=== PATIENT | female | born 1990 | race American Indian/Alaskan Native ===

== ENCOUNTER 2018-02-14 18:58 | Outpatient (CLI) | payer MEDICAID ==
[2018-02-14] MEDS ORDERED: LACTATED RINGERS 1,000 ML ONE (22:53)
[2018-02-14] MEDS ORDERED: LACTATED RINGERS 500 ML IV ONE (23:43)
[2018-02-15 02:49] VITALS: BP 161/82
== END 2018-02-15 00:12 | disposition home or self-care (01) ==
LOC: TRG 18:58
PROVIDERS: ATTEND Obstetrics & Gynecology
DX: O47.03 False labor before 37 completed weeks of gestation, third trimester (principal); O24.419 Gestational diabetes mellitus in pregnancy, unspecified control; Z3A.36 36 weeks gestation of pregnancy
CPT/HCPCS: 82962; J7120; 59025; 96360

== ENCOUNTER → 2020-12-06 | Outpatient (CLI) | payer MEDICAID | END | disposition home or self-care (01) | LOC: SLR 11:00 | PROVIDERS: ATTEND Surgery | DX: G47.30 Sleep apnea, unspecified (principal) | CPT/HCPCS: G0399 ==

== ENCOUNTER 2020-12-25 09:19 | Outpatient (CLI) | payer OTHER ==
--- NOTE | 2020-12-25 10:27 | XRay Report ---
LEFT ANKLE 3 VIEWS INDICATION / CLINICAL INFORMATION: Left ankle pain. COMPARISON: None available. FINDINGS: BONES and JOINT(S): No acute fracture or subluxation. No significant arthritis. SOFT TISSUES: There is mild generalized edema. No other significant abnormality. ADDITIONAL FINDINGS: None. IMPRESSION: Mild left ankle edema. No other acute findings. Signer Name: Andrew Torres MD Signed: 12/25/2020 10:22 AM Workstation Name: [id number]
--- NOTE | 2020-12-25 10:27 | XRay Report ---
RIGHT KNEE 3 VIEWS INDICATION / CLINICAL INFORMATION: Pain in right knee. COMPARISON: None available. FINDINGS: BONES and JOINT(S): No acute fracture or subluxation. There is mild/moderate tricompartmental osteoar thritis. SOFT TISSUES: No significant abnormality. ADDITIONAL FINDINGS: None. IMPRESSION: 1. No acute findings. 2. Mild/moderate osteoarthritis. Signer Name: Andrew Torres MD Signed: 12/25/2020 10:23 AM Workstation Name: [id number]
== END 2020-12-25 09:20 | disposition home or self-care (01) ==
LOC: XRAY 09:19
PROVIDERS: ATTEND Internal Medicine
DX: M17.11 Unilateral primary osteoarthritis, right knee (principal); M79.89 Other specified soft tissue disorders

== ENCOUNTER 2021-01-30 07:40 | Day surgery (SDC) | payer MEDICAID ==
--- NOTE | 2021-01-30 08:35 | Discharge Summary ---
Providers - Providers Date of Admission: 01/30/2021 Date of discharge: 01/30/21 Attending physician: LINO KILLIAN MD Primary care physician: DARCIE NELSON Hospitalization Reason for admission: pre-op egd Condition: Good Procedures: egd w/ bx Hospital course: Pt presented for a pre-op EGD as part of planning for up coming bariatric surgery. Procedure was uneventful and pt recovered well and was discharged to home. Disposition: 01 HOME / SELF CARE / HOMELESS Final Discharge Diagnosis (Prints w/discharge instructions): dyspepsia, morbid obesity Core Measure Documentation - Palliative Care Palliative Care/ Comfort Measures: Not Applicable - Core Measures Any of the following diagnoses?: none Exam - Physical Exam Narrative exam: unchanged from pre-op Plan Activity: no restrictions Diet: low carbohydrate Follow up with: DARCIE NELSON MD [Primary Care Provider] - 7 Days
--- NOTE | 2021-01-30 08:36 | Operative Report ---
Operative Report Operative Report: DATE: 01/30/2021 SURGERY: Upper endoscopy. SURGEON: Elizabeth White M.D. PROCEDURE: EGD with biopsy PRE OP DX: morbid obesity, GERD POST OP DX: morbid obesity, GERD TYPE OF ANESTHESIA: MAC. ESTIMATED BLOOD LOSS: None. COMPLICATIONS: None. SPECIMENS REMOVED: antral biopsy FINDINGS: 1. Small hiatal hernia. 2. gastritis INDICATIONS:INDICATION FOR PROCEDURE: Patient is a 31-year-old female with a long history of morbid obesity. She is planned to have a weight loss procedure and is here for preoperative planning EGD. PROCEDURE DETAILS: After consent was reviewed, patient was taken back to the operating room where patient was placed in the left lateral decubitus position and a bite block was placed in the mouth. After a time-out was called, MAC anesthesia was initiated. I then passed the endoscope into her oropharynx, into her esophagus, visualized the entire esophagus, which was all within normal limits. Z-line was noted to about 38cm from incisors. I then visualized the stomach and the first portion of the duodenum and there were no abnormalities I could clearly visualize except for antral gastritis. A cold forceps biopsy of the antrum was taken and will be sent to pathology to evaluate for H.pylori. I then retroflexed the scope in the stomach and visualized the hiatus and I could see a small hiatal hernia. I then desufflated the stomach and removed the endoscope. Patient tolerated procedure well and was transferred to recovery room in good and stable condition.
[2021-01-30] MEDS ORDERED: SODIUM CHLORIDE 0.9% 1000 ML 1,000 ML ONE (09:07)
[2021-01-30] MEDS ORDERED: propofoL 200 MG/20 ML VIAL IV ONE (10:23)
--- NOTE | 2021-01-30 10:32 | Anesthesia Consultation ---
Anesthesia Consult and Med Hx - Airway Anesthetic Teeth Evaluation: Good ROM Head & Neck: Adequate Mental/Hyoid Distance: Adequate Mallampati Class: Class II Intubation Access Assessment: Probably Good - Pulmonary Exam CTA: Yes - Cardiac Exam Cardiac Exam: RRR - Pre-Operative Health Status ASA Pre-Surgery Classification: ASA2 Proposed Anesthetic Plan: MAC - Pulmonary Hx Smoking: No Hx Asthma: Yes (INHALER LAST USED summer 2017) Hx Respiratory Symptoms: No SOB: No COPD: No Hx Pneumonia: No Hx Sleep Apnea: No - Cardiovascular System Hx Hypertension: No Hx Coronary Artery Disease: No Hx Heart Attack/AMI: No Hx Angina: No Hx Percutaneous Transluminal Coronary Angioplasty (PTCA): No Hx Cardia Arrhythmia: No Hx Pacemaker: No Hx Internal Defibrillator: No Hx Valvular Heart Disease: No Hx Heart Murmur: No Hx Peripheral Vascular Disease: No - Central Nervous System Hx Neuromuscular Disorder: No Hx Seizures: No CVA: No Hx Back Pain: No Hx Psychiatric Problems: No - Gastrointestinal Hx Ulcer: No Hx Gastroesophageal Reflux Disease: No - Endocrine Hx Renal Disease: No Hx End Stage Renal Disease: No Hx Cirrhosis: No Hx Liver Disease: No Hx Insulin Dependent Diabetes: Yes Hx Non-Insulin Dependent Diabetes: No Hx Thyroid Disease: No Hx Hypothyroidism: No Hx Hyperthyroidism: No - Hematic Hx Anemia: No Hx Sickle Cell Disease: Yes (sickle cell trait) - Other Systems Hx Alcohol Use: No Hx Substance Use: No Hx Cancer: No Hx Obesity: Yes - Additional Comments Anesthesia Medical History Comments: No hx of anesthesia complications
--- NOTE | 2021-01-30 10:32 | Anesthesia Day of Surgery ---
Anesthesia Day of Surgery - Day of Surgery Patient Examined: Yes Patient H&P Reviewed: Yes Patient is NPO: Yes
[2021-01-30] MEDS ORDERED: LIDOCAINE MPF (2%) 20 MG/1 ML VIAL 5 ML ONE (10:35)
[2021-01-30 17:09] VITALS: BP 161/53
--- NOTE | 2021-01-30 18:24 | Post Anesthesia Evaluation ---
- Post Anesthesia Evaluation Patient Participated: Yes Airway Patent: Yes Stable Respiratory Function: Yes Nausea/Vomiting: No Temp > 96.8F: Yes Pain Manageable: Yes Adequeate Hydration: Yes Anesthesia Complications: No Block Receding Appropriately: Not Applicable Patient on Ventilator: No
== END 2021-01-30 11:30 | disposition home or self-care (01) ==
LOC: GIO 07:40
PROVIDERS: ATTEND Surgery
DX: E66.01 Morbid (severe) obesity due to excess calories (principal); K21.9 Gastro-esophageal reflux disease without esophagitis; K44.9 Diaphragmatic hernia without obstruction or gangrene; K29.50 Unspecified chronic gastritis without bleeding; B96.81 Helicobacter pylori [H. pylori] as the cause of diseases classified elsewhere; K31.89 Other diseases of stomach and duodenum; J45.909 Unspecified asthma, uncomplicated; E11.9 Type 2 diabetes mellitus without complications; Z79.82 Long term (current) use of aspirin; Z79.4 Long term (current) use of insulin; Z79.899 Other long term (current) drug therapy; Z98.890 Other specified postprocedural states; Z82.49 Family history of ischemic heart disease and other diseases of the circulatory system; Z83.3 Family history of diabetes mellitus
CPT/HCPCS: 43239; 82962; 88305; 88342; J2704; J3490; J7030; J7120; Q0162

== ENCOUNTER 2021-04-30 06:02 | Inpatient (IN) | payer MEDICAID ==
[2021-04-26 12:33] LABS: Hematocrit 39.4 % (30.3-42.9); Hemoglobin 12.8 gm/dl (10.1-14.3); Mean Corpuscular HGB Conc 32 % (30-34); Mean Corpuscular Volume 79 fl (79-97); Platelet Count 415 K/mm3 (140-440); Red Cell Distribution Width 17.5 % (13.2-15.2)
--- NOTE | 2021-04-26 13:05 | Anesthesia Consultation ---
Anesthesia Consult and Med Hx Date of service: 04/30/21 - Airway Anesthetic Teeth Evaluation: Good ROM Head & Neck: Adequate Mental/Hyoid Distance: Adequate Mallampati Class: Class II Intubation Access Assessment: Probably Good - Pre-Operative Health Status ASA Pre-Surgery Classification: ASA3 Proposed Anesthetic Plan: General - Pulmonary Hx Smoking: No Hx Asthma: Yes (Haven't used inhaler in yeras) Hx Respiratory Symptoms: No SOB: No COPD: No Hx Pneumonia: No Hx Sleep Apnea: Yes (No CPAP yet) - Cardiovascular System Hx Hypertension: No Hx Coronary Artery Disease: No Hx Heart Attack/AMI: No Hx Angina: No Hx Percutaneous Transluminal Coronary Angioplasty (PTCA): No Hx Cardia Arrhythmia: No Hx Pacemaker: No Hx Internal Defibrillator: No Hx Valvular Heart Disease: No Hx Heart Murmur: No Hx Peripheral Vascular Disease: No - Central Nervous System Hx Neuromuscular Disorder: No Hx Seizures: No CVA: No Hx Back Pain: No Hx Psychiatric Problems: No - Gastrointestinal Hx Ulcer: No Hx Gastroesophageal Reflux Disease: No - Endocrine Hx Renal Disease: No Hx End Stage Renal Disease: No Hx Cirrhosis: No Hx Liver Disease: No 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
[2021-04-26 13:15] LABS: Alanine Aminotransferase 14 units/L (7-56); Albumin 3.8 g/dL (3.9-5); Blood Urea Nitrogen 11 mg/dL (7-17); Hemolysis Index 2
[2021-04-26 13:16] LABS: BUN/Creatinine Ratio 28
[~2021-04-30 06:02] MED LIST: ENOXAPARIN 40 MG/0.4 ML INJ SUB-Q NR; GABAPENTIN 500 MG/10 ML ORAL LIQD PO NR; LACTATED RINGERS 1,000 ML IV SCH; MIDAZOLAM 2 MG/2 ML INJ IV NR; SCOPOLAMINE TRANSDERMAL PATCH 72 HR TD NR; methOCARBAMOL 1,000 MG in SODIUM CHLORIDE 0.9% 250ML 250 ML IV ONE; metroNIDAZOLE/NS 500 MG/100 ML 500 MG/100 ML BAG IV NR
[2021-04-30] MEDS ORDERED: LIDOCAINE MPF (2%) 20 MG/1 ML VIAL 5 ML ONE ×5 (07:17→07:34)
[2021-04-30] MEDS ORDERED: MAGNESIUM SULFATE 2 GM/50 ML BAG IV ONE (07:17)
[2021-04-30] MEDS ORDERED: KETAMINE/STERILE WATER 50 MG/ML SYRINGE ONE (07:17)
[2021-04-30] MEDS ORDERED: ROCURONIUM 50 MG/5 ML INJ IV ONE (07:17)
[2021-04-30] MEDS ORDERED: SODIUM CHLORIDE P/F VIAL 10 ML 10 ML ONE (07:18)
[2021-04-30] MEDS ORDERED: SUGAMMADEX SODIUM 200 MG/2 ML VIAL IV ONE (07:18)
[2021-04-30] MEDS: ACETAMINOPHEN IV 1,000 MG/100 ML BOTTLE IV NR ×3 (07:30→16:06)
[2021-04-30] MEDS ORDERED: ONDANSETRON 4 MG/2 ML INJ IV PRN ×2 (07:33→10:54)
[2021-04-30] MEDS ORDERED: HYDROmorphone 1 MG/1 ML INJ IV PRN ×3 (07:33→10:54)
--- NOTE | 2021-04-30 07:33 | Anesthesia Day of Surgery ---
Anesthesia Day of Surgery - Day of Surgery Patient Examined: Yes Patient H&P Reviewed: Yes Patient is NPO: Yes
[2021-04-30] MEDS ORDERED: LIDOCAINE 2%/EPINEPHRINE 1:200,000 VIAL (20 ML) INFILTRATI ONE (07:38)
[2021-04-30] MEDS ORDERED: BUPIVACAINE/PF (0.25%) 2.5 MG/ML 30 ML VIAL INFILTRATI ONE ×2 (07:39→09:58)
[2021-04-30] MEDS ORDERED: MIDAZOLAM 2 MG/2 ML INJ ONE (07:58)
[2021-04-30] MEDS ORDERED: HYDROGEN PEROXIDE 118 ML SOLUTION ONE (09:02)
[2021-04-30] MEDS ORDERED: SODIUM CHLORIDE 0.9% IRRIG SOLN 2000 ML IR ONE (09:58)
[2021-04-30] MEDS ORDERED: LIDOCAINE 2%/EPINEPHRINE 1:100,000 VIAL (20 ML) INFILTRATI ONE (09:59)
[2021-04-30] MEDS ORDERED: LACTATED RINGERS 1,000 ML ONE (10:24)
--- OUTSIDE RECORDS SUMMARY | 2021-04-30 10:29 | External Medical Summary ---
:1990 Author Organization [facility] Address [address] [place] [id number] Care Team Providers Name Role Phone Elizabeth White Unavailable [phone] PROBLEMS Type Condition ICD9-CM [id number] Onset Condition W/U Status Risk SNOM ED Notes Code Code Dates Status Code Problem Sleep G47.9 Active confirmed 87185667 disorder, unspecified Problem Sleep apnea, G47.30 Active confirmed 1090449 6 unspecified Problem Dietary Z71.3 Active confirmed 143290215 counseling and surveillance Problem Morbid E66.01 Active confirmed 418952796 (severe) obesity due to excess calories Problem Type 2 E11.9 Active confirmed 656907070 diabetes mellitus without complications Problem Functional K30 Active confirmed 2533060 dyspepsia ALLERGIES No Known Allergies ENCOUNTERS from 1989 to 2021-04-30 Encounter Location Date Provider Diagnosis [address] Apr, [facility] [place] [place] [id number] IMMUNIZATIONS No Information SOCIAL HISTORY Sex Assigned At : Social History Observation Description Sex Assigned At Unknown REASON FOR REFERRAL from 1990 to 2021-04-30 Reason GASTRIC [facility]PASS Diagnosis 1 Type 2 diabetes mellitus wit hout complications (E11.9) Diagnosis 2 Morbid (severe) obesity due to excess calories (E66.01) Diagnosis 3 Functional dyspepsia (K30) Diagnosis 4 Sleep disorder, unspecified (G47.9) Diagnosis 5 Joint disorder, unspecified (M25.9) Diagnosis 6 Sleep apnea, unspecified (G4 7.30) Referral Organization [facility] Referring Provider First Name Elizabeth Referring Provider Last Name Christopher Referring Provider Specialty Surgery Referred Provider [facility], - Referral Priority Routine VITAL SIGNS No information MEDICATIONS Medication SIG (Take, Route, Notes Start Date End Date Status Frequency, Duration) Ondansetron 4 MG 1-2 tablet on the Apr, Active tongue and allow to dissolve Orally q 4-6 hours prn nausea Actos Active Lantus 100 UNIT/ML as directed 60 units QHS Act mendoza Subcutaneous Gabapentin Active Omeprazole 20 MG 1 capsule 30 minutes Jan, Active before morning meal Orally twice a day (bid) for 14 day(s) NovoLOG Mix 70/30 as directed 18 units TID Acti ve (70-30) 100 UNIT/ML Subcutaneous Omeprazole 40 MG 1 capsule 30 minutes Apr, Active before morning meal Orally Once a day Diclofenac Active PROCEDURES No Information RESULTS No Results REASON FOR VISIT Gastric Bypass MEDICAL (GENERAL) HISTORY Type Description Date Medical History diabetes Medical History asthma Medical History joint pain Medical History peripheral neuropathy Surgical History bartholin cyst removal 2016 Surgical History 2019 Hospitalization History as above Goals Section No Information Health Concerns No Information MEDICAL EQUIPMENT No Information MENTAL STATUS No Information FUNCTIONAL STATUS No Information ASSESSMENTS No Information PLAN OF TREATMENT Medication Medication Name Sig Start Date Stop Date Omeprazole 40 MG 1 capsule 30 minutes before morning meal Apr Orally Once a day Ondansetron 4 MG 1-2 tablet on the tongue and allow to Apr, 022 dissolve Orally q 4-6 hours prn nausea Referrals Referral Date Details GASTR[facility]PASS Insurance Providers Payer Payer Payer Insured Patient Coverage Coverage Subscriber Mikaela up Name Address Phone Name Relationship Start End Date Number Nu mber to Insured Date [employer] [phone] [facility] self [id number] [facility] [phone] Sarah garces [facility] [address]
[2021-04-30] MEDS ORDERED: METOCLOPRAMIDE 10 MG/2 ML INJ IV PRN (10:54)
[2021-04-30] MEDS ORDERED: hydrALAZINE 20 MG/1 ML INJ IV PRN (10:54)
[2021-04-30] MEDS ORDERED: HYDROcodone/Acetaminophen 7.5-325MG-15ML ORAL LIQD PO PRN (10:54)
[2021-04-30] MEDS ORDERED: MORPHINE 2 MG/1 ML INJ IV PRN (10:54)
[2021-04-30] MEDS ORDERED: DEXTROSE 50% IN WATER (25GM) 50 ML SYRINGE IV PRN (11:00)
[2021-04-30] MEDS ORDERED: LACTATED RINGERS 1,000 ML IV SCH (11:00)
--- NOTE | 2021-04-30 11:06 | Operative Report ---
Operative Report Operative Report: DATE OF PROCEDURE: 04/30/2021 SURGEON: Elizabeth White MD INDUSTRIAL CHEMIST: Graciela George CSA MD PREOPERATIVE DIAGNOSIS: Morbid obesity. POSTOPERATIVE DIAGNOSES: Morbid obesity PROCEDURES PERFORMED: 1. Laparoscopic gastric bypass. 2. EGD. ANESTHESIA: General endotracheal tube intubation. SPECIMENS: None. ESTIMATED BLOOD LOSS: Less than 10 mL. FINDINGS: Normal anatomy. COMPLICATIONS: None. INDICATION: Ms. Butt is a 31-year-old female with history of morbid obesity, and obesity related co-morbidities. She presented today for gastric bypass. She signed informed consent and expressed understanding of risks and benefits. DESCRIPTION OF PROCEDURE: Patient was brought to the OR suite, laid in supine position. Bilateral lower extremity SCDs were placed. General anesthesia was induced via successful endotracheal tube intubation. Patient's abdomen was prepped and draped in sterile fashion. A veress needle was used to insuflate the abdomen to a pressure of 15mmHg via a stab incision in the left subcostal area. Using Optiview technique, a 5-mm trocar was placed into the abdominal cavity under direct vision. There was noted to be no gross injury to any intraabdominal structures. 4 working trocars were placed under direct visualization, 12 mm in the right mid abdomen mid clavicular line and three 5-mm trocars in the right upper quadrant, epigastric, left upper quadrant. At this time, the ligament of Treitz identified and followed down approximately 70 cm and the jejunum was transected, after the omentum was split with the Harmonic scalpel . The distal segment of jejunum was then traced for approximately 100 cm and a stapled [id number]-xzil jejunojejunostomy was performed. The common enterotomy was closed with 2 firings of the endoscopic stapler. The mesenteric defect was closed with running non-absorbable v-loc suture. This anastomosis was found to be patent without kink, obstruction or bleeding. At this time, the patient was placed in steep reverse Trendelenburg position. A liver retractor was placed through the epigastric port to elevate the left lateral lobe of the liver. A small gastric pouch was formed measuring about 4cm from the hiatus with serial firings of the blue staple load. The Leticia limb was then brought in an antegastric antecolic fashion and secured with 2 stay sutures to the gastric pouch. After this, the enterotomies were made with Harmonic scalpel, and a [id number]-jr-luda stapled gastrojejunostomy was performed with a mechanical stapler. With a common anastamosis measuring about 20mm. After this, a 2-layer running closure using absorbable v-loc suture was done. The first being mucosal approximation. Prior to completion of the first layer, I passed an EGD scope beyond the anastomosis to act as a stent. The first layer was completed, the second was then performed. After this, the EGD was retracted slightly. A bowel clamp was placed on the proximal Leticia limb. The anastomosis was submerged under saline. Via intraluminal EGD insufflation, there was noted be no bubbles in the saline indicating an air tight anastomosis. There was noted to be no obstruction or bleeding intraluminally in the pouch or the anastomosis. At this time, the scope was removed. The saline was aspirated. Vistaseal was placed over the anastomosis. A TAP block was performed using a total of 60 mL 0.25% Marcaine along bilateral mid axillary lines starting at the subcostal margin at the level of the umbilicus. All trocars were removed under direct visualization and the abdomen was then desufflated. The 12mm trocars were closed at the fascial layer with #1 PDS using a suture passer device. The skin incisions were closed with 4-0 Monocryl followed by Dermabond dressings. Patient was awoken and taken to recovery in stable condition. All counts were correct.
[2021-04-30] MEDS ORDERED: DEXTROSE 10% *Hypoglycemia IV PRN (11:16)
[2021-04-30] MEDS: PANTOPRAZOLE 40 MG INJ IV SCH (12:21)
[2021-04-30] MEDS: INSULIN REGULAR, HUMAN 100 UNITS/1 ML SUB-Q SCH ×2 (12:22→22:45)
[2021-04-30] MEDS: KETOROLAC 30 MG/1 ML INJ IV SCH ×2 (14:30→22:51)
[2021-04-30] MEDS: SIMETHICONE 80 MG CHEW TAB PO PRN ×2 (15:37→21:52)
[2021-04-30] MEDS: ceFAZolin/NS 1 GM/50 ML 1 GM/50 ML BAG IV SCH (16:07)
[2021-04-30] MEDS: metroNIDAZOLE/NS 500 MG/100 ML 500 MG/100 ML BAG IV SCH (16:08)
[2021-04-30] MEDS: ACETAMINOPHEN IV 1,000 MG/100 ML BOTTLE IV SCH ×2 (16:24→22:53)
[2021-04-30] MEDS ORDERED: GABAPENTIN 300 MG CAP PO SCH (22:00)
[2021-05-01] MEDS: KETOROLAC 30 MG/1 ML INJ IV SCH ×3 (00:27→13:16)
[2021-05-01] MEDS: ACETAMINOPHEN IV 1,000 MG/100 ML BOTTLE IV SCH ×2 (00:29→05:58)
[2021-05-01] MEDS: metroNIDAZOLE/NS 500 MG/100 ML 500 MG/100 ML BAG IV SCH ×2 (00:32→09:33)
[2021-05-01] MEDS: INSULIN REGULAR, HUMAN 100 UNITS/1 ML SUB-Q SCH ×2 (01:14→12:55)
[2021-05-01] MEDS: ceFAZolin/NS 1 GM/50 ML 1 GM/50 ML BAG IV SCH (02:00)
[2021-05-01] MEDS: SIMETHICONE 80 MG CHEW TAB PO PRN (03:18)
[2021-05-01 06:28] LABS: Basophils % (Auto) 0.4 % (0.0-1.8); Eosinophils % (Auto) 0.1 % (0.0-4.3); Hematocrit 38.3 % (30.3-42.9); Hemoglobin 12.5 gm/dl (10.1-14.3); Lymphocytes # (Auto) 2.1 K/mm3 (1.2-5.4); Lymphocytes % (Auto) 23.7 % (13.4-35.0); Mean Corpuscular HGB Conc 33 % (30-34); Mean Corpuscular Volume 79 fl (79-97); Monocytes # (Auto) 0.5 K/mm3 (0.0-0.8); Monocytes % (Auto) 5.5 % (0.0-7.3); Platelet Count 337 K/mm3 (140-440); Red Blood Count 4.87 M/mm3 (3.65-5.03); Red Cell Distribution Width 17.6 % (13.2-15.2)
[2021-05-01 06:47] LABS: Alanine Aminotransferase 16 units/L (7-56); Albumin 3.1 g/dL (3.9-5); Blood Urea Nitrogen 10 mg/dL (7-17); Calcium 9.2 mg/dL (8.4-10.2); Hemolysis Index 16
[2021-05-01 06:49] LABS: BUN/Creatinine Ratio 20
[2021-05-01] MEDS: PANTOPRAZOLE 40 MG INJ IV SCH (09:33)
[2021-05-01] MEDS ORDERED: ENOXAPARIN 40 MG/0.4 ML INJ SUB-Q SCH (10:00)
--- NOTE | 2021-05-01 11:02 | Post Anesthesia Evaluation ---
- Post Anesthesia Evaluation Patient Participated: Yes Airway Patent: Yes Stable Respiratory Function: Yes Nausea/Vomiting: No Pain Manageable: Yes Adequeate Hydration: Yes Anesthesia Complications: Yes Block Receding Appropriately: Not Applicable Patient on Ventilator: No
--- NOTE | 2021-05-01 16:37 | Discharge Summary ---
Providers - Providers Date of Admission: 04/30/21 06:02 Date of discharge: 05/01/21 Attending physician: LINO KILLIAN MD 04/30/21 10:54 Physical Therapy Evaluation and Treat [CONS] Routine Comment: Reason For Exam: post op bariatric surgery Primary care physician: DARCIE NELSON Hospitalization Reason for admission: Status post bariatric surgery Condition: Good Procedures: Laparoscopic gastric bypass Hospital course: Patient had an uneventful laparoscopic gastric bypass for the treatment of morbid obesity and diabetes. Patient was recovering well. Patient was tolerating clear liquids out difficulty ambulating with adequate pain control. She remained afebrile and had laboratory values and vitals that were within acceptable limits. Patient was discharged to home postop day #1 showing no gross clinical signs of leak or bleeding. Patient will follow up in the office within 2 weeks. Disposition: 01 HOME / SELF CARE / HOMELESS Final Discharge Diagnosis (Prints w/discharge instructions): morbid obesity, diabetes Core Measure Documentation - Palliative Care Palliative Care/ Comfort Measures: Not Applicable - Core Measures Any of the following diagnoses?: none Exam - Constitutional Vitals: Temp Pulse Resp BP Pulse Ox 98.9 F 98 H 22 98/54 98 05/01/21 11:39 05/01/21 11:39 05/01/21 11:39 05/01/21 11:39 05/01/21 11:39 General appearance: Present: no acute distress, obese - EENT Eyes: Present: PERRL. Absent: scleral icterus - Respiratory Respiratory effort: normal - Cardiovascular Heart Sounds: Present: S1 & S2 - Extremities Extremities: no ischemia - Abdominal General gastrointestinal: Present: soft, other (incisions c/d/i, appropriately tender to palpation). Absent: distended Plan Activity: advance as tolerated Diet: clear liquids Wound: open to air, keep clean and dry Follow up with: DARCIE NELSON MD [Primary Care Provider] - 7 Days
[2021-05-01 17:57] VITALS: BP 113/67
== END 2021-05-01 18:35 | disposition home or self-care (01) | DRG 621 ==
LOC: 3A 06:02 → 4A 11:37
PROVIDERS: ADMIT Surgery; ATTEND Surgery
PROC: 0D164ZA Bypass Stomach to Jejunum, Percutaneous Endoscopic Approach (ICD-10-PCS; principal; 2021-04-30)
PROC: 0DJ08ZZ Inspection of Upper Intestinal Tract, Via Natural or Artificial Opening Endoscopic (ICD-10-PCS; 2021-04-30)
DX: E66.01 Morbid (severe) obesity due to excess calories (principal); J45.909 Unspecified asthma, uncomplicated; E11.40 Type 2 diabetes mellitus with diabetic neuropathy, unspecified; Z68.43 Body mass index [BMI] 50.0-59.9, adult; Z20.822 Contact with and (suspected) exposure to COVID-19
CPT/HCPCS: 36415; 80053; 82962; 84703; 85025; 85027; G0378; J3490; J7121; J7517; C9113; J0131; J0690; J1650; J1885; J2250; J2270; J2704; J3475; J7120; U0003